=== PATIENT | female | born 1995 | race American Indian/Alaskan Native ===

== ENCOUNTER 2021-09-25 12:37 | Outpatient (CLI) | payer OTHER ==
--- NOTE | 2021-09-25 13:47 | XRay Report ---
XR spine lumbosacral 2-3V INDICATION: BACK PAIN. COMPARISON: None available. FINDINGS: There is no acute fracture or subluxation. There is mild diffuse spondylosis. Signer Name: Eder Rodrigez MD Signed: 09/25/2021 1:42 PM Workstation Name: [email or web address]
--- NOTE | 2021-09-25 13:47 | XRay Report ---
. XR knees standing AP Bilateral INDICATION: BILATERAL KNEE PAIN. COMPARISON: None available. FINDINGS: There is no acute fracture in either knee. There is mild osteoarthritis in both knees. Signer Name: Eder Rodrigez MD Signed: 09/25/2021 1:42 PM Workstation Name: [email or web address]
== END 2021-09-25 12:38 | disposition home or self-care (01) ==
LOC: XRAY 12:37
PROVIDERS: ATTEND Internal Medicine
DX: M47.816 Spondylosis without myelopathy or radiculopathy, lumbar region (principal); M16.0 Bilateral primary osteoarthritis of hip
CPT/HCPCS: 72100; 73565